=== PATIENT | male | born 1965 | race American Indian/Alaskan Native ===

== ENCOUNTER 2018-02-06 06:03 | Emergency (ER) | payer OTHER ==
[2018-02-06 07:15] LABS: BUN/Creatinine Ratio 14; Blood Urea Nitrogen 14 mg/dL (9-20); Calcium 9.4 mg/dL (8.4-10.2); Hemolysis Index 12
[2018-02-06 07:23] LABS: Basophils # (Auto) 0.1 K/mm3 (0.0-0.1); Basophils % (Auto) 1.3 % (0.0-1.8); Eosinophils # (Auto) 0.6 K/mm3 (0.0-0.4); Eosinophils % (Auto) 9.1 % (0.0-4.3); Hematocrit 45.4 % (35.5-45.6); Hemoglobin 15.4 gm/dl (11.8-15.2); Lymphocytes # (Auto) 1.8 K/mm3 (1.2-5.4); Lymphocytes % (Auto) 29.4 % (13.4-35.0); Mean Corpuscular HGB Conc 34 % (32-34); Mean Corpuscular Hemoglobin 30 pg (28-32); Mean Corpuscular Volume 89 fl (84-94); Monocytes # (Auto) 0.9 K/mm3 (0.0-0.8); Monocytes % (Auto) 14.3 % (0.0-7.3); Platelet Count 180 K/mm3 (140-440); Red Blood Count 5.13 M/mm3 (3.65-5.03); Red Cell Distribution Width 15.5 % (13.2-15.2)
--- NOTE | 2018-02-06 10:38 | Emergency Department Report ---
ED Chest Pain HPI - General Chief Complaint: Chest Pain Stated Complaint: CHEST PAIN Time Seen by Provider: 02/06/18 09:43 Source: patient Mode of arrival: Ambulatory Limitations: No Limitations - History of Present Illness Initial Comments: 53-year-old male with a past medical history of asthma (a long time ago) presents to the hospital complaining of intermittent mid chest tightness since 2 AM. Pain occurred while at work. Pain lasts for less than 1 minute and without nausea, vomiting, diaphoresis, or shortness of breath. Pain occurs at rest with no aggravating or alleviating factors. Patient reports the negative stress test approximately one year ago. He does not smoke cigarettes and his mother of a heart attack in her 60s. Patient presents with elevated blood pressure today but states [facility]. Patient denies history of PE/DVT. 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 He denies calf tenderness, unilateral calf pain, pleuritic chest pain, or dyspnea. Severity scale (0 -10): 4 - Related Data Allergies Allergy/AdvReac Type Severity Reaction Status Date / Time No Known Allergies Allergy Verified 02/06/18 06:29 Heart Score - HEART Score History: Slightly suspicious EKG: Normal Age: 45-65 Risk factors: 1-2 risk factors Troponin: < normal limit HEART Score: 2 ED Review of Systems ROS: Stated complaint: CHEST PAIN Other details as noted in HPI Comment: All other systems reviewed and negative ED Past Medical Hx - Past Medical History Hx Asthma: Yes - Surgical History Past Surgical History?: No - Social History Smoking Status: Never Smoker Substance Use Type: Alcohol ED Physical Exam - General Limitations: No Limitations - Other Other exam information: General: No limitations, patient is alert in no acute distress Head exam: Atraumatic, normocephalic Eyes exam: Normal appearance, pupils equal reactive to light, extraocular movements intact ENT: Moist mucous membrane, normal oropharynx Neck exam: Normal inspection, full range of motion, no meningismus nontender Respiratory exam: Clear to auscultation bilateral, no wheezes, rales, crackles Cardiovascular: Normal rate and rhythm, normal heart sounds, chest wall nontender Abdomen: Soft, nondistended, and nontender, with normal bowel sounds, no rebound, or guarding Extremity: Full range of motion normal inspection no deformity, no calf tenderness or edema Back: Normal Inspection, full range of motion, no tenderness Neurologic: Alert, oriented x3, cranial nerves intact, no motor or sensory deficit Psychiatric: normal affect, normal mood Skin: Warm, dry, intact ED Course Vital Signs 02/06/18 02/06/18 02/06/18 06:22 09:14 09:16 Temperature 98.4 F Pulse Rate 68 84 66 Respiratory 18 18 22 Rate Blood Pressure 173/105 156/95 Blood Pressure [Left] O2 Sat by Pulse 98 99 Oximetry 02/06/18 02/06/18 09:34 12:22 Temperature Pulse Rate 97 H Respiratory 18 16 Rate Blood Pressure Blood Pressure 142/88 [Left] O2 Sat by Pulse 97 97 Oximetry - Reevaluation(s) Reevaluation #1: 02/06/18 13:00 pt hesitated initially but agreeable to transfer and admission - Consultations Consultation #1: 02/06/18 12:[address] Cesar Oconnor to [facility]. Accepting MD Dr Martines ROYCE score - Royce Score Age > 65: (0) No Aspirin use within the Past 7 Days: (0) No 3 or more CAD Risk Factors: (1) Yes 2 or more Angina events in past 24 hrs: (1) Yes Known CAD with more than 50% Stenosis: (0) No ST Deviation Greater than 0.5mm: (0) No ED Medical Decision Making - Lab Data Result diagrams: 02/06/18 06:33 02/06/18 06:33 Lab Results 02/06/18 02/06/18 02/06/18 Range/Units 06:33 06:33 09:23 WBC 6.1 (4.5-11.0) K/mm3 RBC 5.13 H (3.65-5.03) M/mm3 Hgb 15.4 H (11.8-15.2) gm/dl Hct 45.4 (35.5-45.6) % MCV 89 (84-94) fl MCH 30 (28-32) pg MCHC 34 (32-34) % RDW 15.5 H (13.2-15.2) % Plt Count 180 (140-440) K/mm3 Lymph % (Auto) 29.4 (13.4-35.0) % [place] % (Auto) 14.3 H (0.0-7.3) % Eos % (Auto) 9.1 H (0.0-4.3) % Baso % (Auto) 1.3 (0.0-1.8) % Lymph # 1.8 (1.2-5.4) K/mm3 [place] # 0.9 H (0.0-0.8) K/mm3 Eos # 0.6 H (0.0-0.4) K/mm3 Baso # 0.1 (0.0-0.1) K/mm3 Seg Neutrophils % 45.9 (40.0-70.0) % Seg Neutrophils # 2.8 (1.8-7.7) K/mm3 D-Dimer (0-234) ng/mlDDU Sodium 136 L (137-145) mmol/L Potassium 4.4 (3.6-5.0) mmol/L Chloride 100.4 (98-107) mmol/L Carbon Dioxide 24 (22-30) mmol/L Anion Gap 16 mmol/L BUN 14 (9-20) mg/dL Creatinine 1.0 (0.8-1.5) mg/dL Estimated GFR > 60 ml/min BUN/Creatinine Ratio 14 % Glucose 87 (75-100) mg/dL Calcium 9.4 (8.4-10.2) mg/dL Troponin T < 0.010 < 0.010 (0.00-0.029) ng/mL 02/06/18 Range/Units 10:34 WBC (4.5-11.0) K/mm3 RBC (3.65-5.03) M/mm3 Hgb (11.8-15.2) gm/dl Hct (35.5-45.6) % MCV (84-94) fl MCH (28-32) pg MCHC (32-34) % RDW (13.2-15.2) % Plt Count (140-440) K/mm3 Lymph % (Auto) (13.4-35.0) % [place] % (Auto) (0.0-7.3) % Eos % (Auto) (0.0-4.3) % Baso % (Auto) (0.0-1.8) % Lymph # (1.2-5.4) K/mm3 [place] # (0.0-0.8) K/mm3 Eos # (0.0-0.4) K/mm3 Baso # (0.0-0.1) K/mm3 Seg Neutrophils % (40.0-70.0) % Seg Neutrophils # (1.8-7.7) K/mm3 D-Dimer 157.66 (0-234) ng/mlDDU Sodium (137-145) mmol/L Potassium (3.6-5.0) mmol/L Chloride (98-107) mmol/L Carbon Dioxide (22-30) mmol/L Anion Gap mmol/L BUN (9-20) mg/dL Creatinine (0.8-1.5) mg/dL Estimated GFR ml/min BUN/Creatinine Ratio % Glucose (75-100) mg/dL Calcium (8.4-10.2) mg/dL Troponin T (0.00-0.029) ng/mL - EKG Data -: EKG Interpreted by Pr EKG shows normal: sinus rhythm, axis (qrs 38), QRS complexes (qrsd 79), ST-T waves (no stemi/t in inv) Rate: normal (65) - Medical Decision Making Plan to admit Albert has only seen pt since november pt doesnt recall the hospital where he had his previous stress D-dimer negative No STEMI in the ED and negative troponins pt will be admitted for further cardiac evaluation to include possible stress test - Differential Diagnosis mi, pe, dissection, unstable angina, atypical chest pain Critical Care Time: No Critical care attestation.: If time is entered above; I have spent that time in minutes in the direct care of this critically ill patient, excluding procedure time. ED Disposition Clinical Impression: Chest pain, HTN (hypertension) Disposition: DC/TX-70 ANOTHER TYPE HLTHCARE Is pt being admited?: No Condition: Stable Time of Disposition: 13:02 (transfer to [facility])
--- NOTE | 2018-02-06 11:36 | XRay Report ---
FINAL REPORT EXAM: XR CHEST ROUTINE 2V HISTORY: cp TECHNIQUE: 2 view examination of the chest PRIORS: None FINDINGS: Nonspecific streaky densities are present bilaterally with slight central predominance. This interstitial prominence may represent interstitial and/or vascular markings. There is no focal pulmonary consolidation. No evidence of pleural effusion or pneumothorax. The cardiac silhouette size is normal. No evidence of acute skeletal pathology. Linear scar versus atelectasis in right midlung. IMPRESSION: Nonspecific interstitial prominence may reflect scarring or fibrosis. Acute considerations include reactive airways disease, vascular congestion, interstitial edema, viral process, or interstitial pneumonitis. Linear scar versus atelectasis in right midlung
[2018-02-06] MEDS ORDERED: ASPIRIN PO ONE (12:13)
[2018-02-06 12:23] VITALS: BP 142/88
== END 2018-02-06 14:11 | disposition other institution (70) ==
LOC: ED 06:03
DX: R07.9 Chest pain, unspecified (principal); I10 Essential (primary) hypertension; J45.909 Unspecified asthma, uncomplicated
CPT/HCPCS: 36415; 71046; 80048; 84484; 85025; 85379; 93005; 93010

== ENCOUNTER 2019-09-22 08:31 | Emergency (ER) | payer OTHER ==
[2019-09-22 08:39] VITALS: BP 167/97
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
== END 2019-09-22 09:58 | disposition left against medical advice (07) ==
LOC: ED 08:31
DX: D17.79 Benign lipomatous neoplasm of other sites (principal)
CPT/HCPCS: 99281

== ENCOUNTER 2020-09-02 14:01 | Emergency (ER) | payer OTHER ==
[2020-09-02 14:19] VITALS: BP 152/85
--- NOTE | 2020-09-02 14:31 | Emergency Department Report ---
Chief Complaint: Headache Stated Complaint: TONGUE TINGLE/HEADACHE - HPI History of Present Illness: 55 y/o AAM present to ER reports that he had a flash NGUYEN that last a few seconds with tongue numbness and resolved as quick as it can. Patient has no other complaints. No change in vision no n/v/ no worst headache. No extremity weakness. No crocked smile. - Exam Vital Signs: Vital Signs 09/02/20 09/02/20 14:08 14:16 Temperature 98.0 F 98 F Pulse Rate 67 77 Respiratory 18 18 Rate Blood Pressure 152/85 152/85 O2 Sat by Pulse 98 98 Oximetry Physical Exam: axo times 3 NAD effortless brathing movement in all extremities. Back FROM strength intact and 5/5 ambulating without diff MSE screening note: Focused history and physical exam performed. Due to findings the following was ordered: 55 y/o AAM present to ER reports that he had a flash NGUYEN that last a few seconds with tongue numbness and resolved as quick as it can. Patient has no other complaints. No change in vision no n/v/ no worst headache. No extremity weakness. No crocked smile. Patient was reading a book in [place]. Ambulating without diff. Moving all extremities. ED Disposition for MSE Disposition: Z-07 MED SCREENING EXAM-LEFT Is pt being admited?: No Does the pt Need Aspirin: No Condition: Stable Additional Instructions: follow up with your PCP
== END 2020-09-02 15:31 | disposition left against medical advice (07) ==
LOC: ED 14:01
DX: R20.0 Anesthesia of skin (principal); Z53.21 Procedure and treatment not carried out due to patient leaving prior to being seen by health care provider

== ENCOUNTER 2020-11-08 03:13 | Emergency (ER) | payer OTHER ==
[2020-11-08 03:22] VITALS: BP 160/97
--- NOTE | 2020-11-08 03:26 | Emergency Department Report ---
- General Stated Complaint: SPIDER BITE/RT ARM Time Seen by Provider: 11/08/20 03:19 - History of Present Illness Initial Comments: 56-year-old F Macanese male with asthma department complaining of pain and swelling to the right forearm after a insect bite which she believes has been a spider bite which is been progressively worsening since the onset as he is utilize heat to try to help to mitigate some of the symptoms. Pain is dull and throbbing worse with palpation and range of motion but no fever chills or sweats. -: Gradual Extremity Location: Right: Forearm Place: home Patient Tetanus UTD: Yes Context: accidental Associated Symptoms: pain Treatments Prior to Arrival: other (warm compress ) - Related Data Previous Rx's Medication Instructions Recorded Last Taken Type Diclofenac Dr [Dulce Maria Torres] 75 mg PO BID #14 tablet 11/08/20 Unknown Rx Sulfamethoxazole/Trimethoprim 1 each PO BID #20 tablet 11/08/20 Unknown Rx [Bactrim DS TAB] cephALEXin [Keflex] 500 mg PO Q8HR #30 cap 11/08/20 Unknown Rx Allergies Allergy/AdvReac Type Severity Reaction Status Date / Time No Known Allergies Allergy Verified 09/22/19 08:32 ED Review of Systems ROS: Stated complaint: SPIDER BITE/RT ARM Other details as noted in HPI Comment: All other systems reviewed and negative ED Past Medical Hx - Past Medical History Hx Hypertension: Yes (no meds) Hx Asthma: Yes - Social History Smoking Status: Current Every Day Smoker Substance Use Type: Alcohol - Medications Home Medications: Home Medications Medication Instructions Recorded Confirmed Last Taken Type Diclofenac Dr [Dulce Maria Torres] 75 mg PO BID #14 tablet 11/08/20 Unknown Rx Sulfamethoxazole/Trimethoprim 1 each PO BID #20 tablet 11/08/20 Unknown Rx [Bactrim DS TAB] cephALEXin [Keflex] 500 mg PO Q8HR #30 cap 11/08/20 Unknown Rx ED Physical Exam - General General appearance: alert, in no apparent distress - Head Head exam: Present: atraumatic, normocephalic - Eye Eye exam: Present: normal appearance - ENT ENT exam: Present: mucous membranes moist - Neck Neck exam: Present: normal inspection - Respiratory Respiratory exam: Present: normal lung sounds bilaterally. Absent: respiratory distress - Cardiovascular Cardiovascular Exam: Present: regular rate, normal rhythm. Absent: systolic murmur, diastolic murmur, rubs, gallop - GI/Abdominal GI/Abdominal exam: Present: soft, normal bowel sounds - Rectal Rectal exam: Present: deferred - Extremities Exam Extremities exam: Present: normal inspection, tenderness (There is tenderness to the right forearm with palpation. There is obvious indurated area with some serous discharge but no pustular discharge no fluctuance. No lymphangitis is noted. No lymphadenopathy to the axillary or the epitrochlear nodes.) - Back Exam Back exam: Present: normal inspection - Neurological Exam Neurological exam: Present: alert, oriented X3, CN II-XII intact - Psychiatric Psychiatric exam: Present: normal affect, normal mood - Skin Skin exam: Present: warm, dry, intact, normal color. Absent: rash Critical care attestation.: If time is entered above; I have spent that time in minutes in the direct care of this critically ill patient, excluding procedure time. ED Disposition Clinical Impression: Spider bite Disposition: DC-01 TO HOME OR SELFCARE Is pt being admited?: No Does the pt Need Aspirin: No Condition: Stable Instructions: Brown Recluse Spider Bite, [id number], Spider Bite, [id number], Spider Bite Prescriptions: Sulfamethoxazole/Trimethoprim [Bactrim DS TAB] 1 each PO BID #20 tablet cephALEXin [Keflex] 500 mg PO Q8HR #30 cap Diclofenac [Dulce Maria Torres] 75 mg PO BID #14 tablet Referrals: [facility] [Provider Group] - 3-5 Days
== END 2020-11-08 03:58 | disposition home or self-care (01) ==
LOC: ED 03:13
DX: S41.151A Open bite of right upper arm, initial encounter (principal); J45.909 Unspecified asthma, uncomplicated; F17.200 Nicotine dependence, unspecified, uncomplicated; Z79.899 Other long term (current) drug therapy; W57.XXXA Bitten or stung by nonvenomous insect and other nonvenomous arthropods, initial encounter; Y93.89 Activity, other specified; Y92.89 Other specified places as the place of occurrence of the external cause; Y99.8 Other external cause status
CPT/HCPCS: 99282